=== PATIENT | male | born 1975 | race Caucasian/White ===

== ENCOUNTER 2023-12-28 08:02 | Emergency (ER) | payer BC, SELFPAY ==
[2023-12-28 08:04] VITALS: BP 154/94; PULSE 75; RESP 18; TEMP 36; O2SAT 97; BMI 30.2
[2023-12-28 08:23] LABS: Appearance Urine Clear (Clear); Bilirubin Urine Negative (Negative); Blood Urine Negative (Negative); Color Urine Yellow (Yellow); Glucose Urine Negative (Negative); Ketones Urine Negative (Negative); Leukocyte Esterase Urine Negative (Negative); Nitrite Urine Negative (Negative); Protein Urine Negative (Negative); Urobilinogen Urine 0.2 (0.2-1.0); pH Urine 6.5 (5.0-8.5)
--- NOTE | 2023-12-28 08:31 | CT_ITS ---
Patient: ABBY TY Facility:?[facility] R[facility] Patient ID:?[id number] Site Patient ID:?[id number]. Site :?[id number] Study:?CT-Abdomen/Pelvis W/O-12/28/2023 9:03:47 AM Ordering Physician:DARREN Final Report: INDICATION: LEFT LOWER QUADRANT PAIN , FLANK PAIN TECHNIQUE: CT abdomen and pelvis without contrast COMPARISON: None. FINDINGS: Kidney/ureters: Kidneys are normal in caliber. No kidney or ureteral stones and no hydronephrosis. No sign of perinephric inflammation. Ureters are normal in caliber. No bladder wall thickening. Liver/gallbladder/bile ducts: The liver is normal in size, shape and attenuation. Gallbladder is normal without visualized stones or inflammation. No biliary dilatation. Spleen/pancreas/adrenal glands: The spleen, adrenal glands and pancreas are within normal limits. GI tract: No evidence of bowel obstruction or inflammation. Mild stool burden. Surgically absent appendix. Abdominal wall/omentum/peritoneum: No free air or significant free fluid. No mass or inflammation. Lymph nodes: No lymphadenopathy. Pelvis: Unremarkable pelvis. Probable vasectomy clips Lower chest: Unremarkable. Bones: Mild intervertebral disc space narrowing at L5-S1. IMPRESSION: No evidence of acute intra-abdominal/pelvic process on this unenhanced CT. Suspect small left fat containing inguinal hernia. Please note that all CT scans at this facility use dose modulation, iterative reconstruction, and/or weight-based dosing when appropriate to reduce radiation dose to as low as reasonably achievable. Dictated by Adan Donahue MD @ 12/28/2023 9:51:13 AM Signed by:?Adan Donahue MD @12/28/2023 9:51:13 AM (Electronic Signature)
--- NOTE | 2023-12-28 08:33 | ED_ITS ---
HPI - General Adult General Date Seen: 12/28/23 Chief complaint: Abdominal Pain Stated complaint: Lower L abdominal/back pain Time Seen by Provider: 12/28/23 08:08 Source: patient, RN notes reviewed and old records reviewed Mode of arrival: ambulatory Limitations: no limitations History of Present Illness HPI narrative: Patient is a 48-year-old male generally healthy with the exception of a history of atrial fibrillation who comes in for evaluation of left lower quadrant and left flank pain. He notes that 2 nights ago he was awakened in the middle the night with pain in his left lower quadrant which he says was sharp in fairly severe to the point that he felt nauseated. He got up to urinate, felt that it was somewhat difficult ago. Yesterday however symptoms were somewhat improved and he thought it was just getting better. He has persistent symptoms today, now it seems to radiate to the left flank area as well. He has not had urinary symptoms aside from feeling that his urine is somewhat malodorous 1st thing in the morning. He has not had fevers or chills. He has not had return of nausea and has had no vomiting, diarrhea, constipation, black or bloody stools. Pain d oes worsen when he leans forward or when he lifts his left leg at the hip, but he says it feels different than muscular back pain. He had a colonoscopy a couple of years ago, reports no significant findings. He has a history of hernia repair as a child, appendectomy, varicocele repair. No other abdominal surgeries. He is not anticoagulated as he has not had problems with AFib recently. He does not smoke or drink. He has not taken anything for pain. Related Data Home Medications Medication Instructions Recorded Confirmed amlodipine 10 mg tablet 10 mg PO DAILY 12/28/23 12/28/23 lisinopril 20 mg tablet 20 mg PO DAILY 12/28/23 12/28/23 sotalol 80 mg tablet 80 mg PO DAILY 12/28/23 12/28/23 Allergies Allergy/AdvReac Type Severity Reaction Status Date / Time acetaminophen [From Percocet] Allergy Intermediate racing Verified 12/28/23 08:12 heart oxycodone [From Percocet] Allergy Intermediate racing Verified 12/28/23 08:12 heart Sulfa (Sulfonamide Allergy Mild A fib Verified 12/28/23 08:12 Antibiotics) Review of Systems Status of ROS: Reports: 10 or more systems reviewed and unremarkable except as noted in History and below [facility] Medical History Hypertension ?I10 - Essential (primary) hypertension (ICD-10) Social History Smoking Status: Never smoker Do you use any of these nicotine containing products: None How often do you have a drink containing alcohol: never AUDIT-C Alcohol total score: 0 Non-prescribed substance use: denies use Exam Narrative: Exam Narrative: Vital signs as noted above. In general, an alert, well-appearing patient. Head: Normocephalic, atraumatic. Eyes: Pupils are equal reactive. Extraocular movements are full. Conjunctivae are normal. ENT: Mucous membranes are moist. Throat is normal. Neck: Supple without lymphadenopathy. Heart: Regular rate and rhythm. No murmur or rub. Lungs: Clear bilaterally. No increased work of breathing, crackles or wheezes. Abdomen: Soft and nontender. No CVA tenderness. Extremities: Well perfused. No edema. No calf tenderness. Pulses intact. Neurologic: Patient is alert and oriented to person and place. Speech is fluent. Face is symmetric. Moves all extremities equally. Affect: Normal. Skin: Warm and dry. Well perfused. Const: Vital Signs, click to edit/add: Vital Signs - 24 hr 12/28/23 08:04 Temperature 96.8 F L Pulse Rate [Left P ulse Oximeter] 75 Respiratory Rate 18 Blood Pressure [Le ft Upper Arm] 154/94 H Pulse Oximetry 97 Oxygen Delivery Me thod Room Air Documenting provider has reviewed patient's vital signs: yes Course Course ED Course: Patient presents with some left lower quadrant pain without significant te nderness, no GI symptoms or fever, no known history of kidney stones. Diagnostic considerations would include kidney stone, UTI or pyelonephritis, diverticulitis, hernia, musculoskeletal injury among others. I think it is reasonable to do a CT scan without contrast to look for a kidney stone as symptoms certainly sound suggestive. Urinalysis is pending. He declines need for anything for pain at this time. Both urinalysis and CT scan were negative. UA shows 0-2 red cells and 0-2 white cells, CT scan by my review did not show hydronephrosis, renal stone, perinephric stranding, or other inflammatory changes suggestive of diverticulitis. I do not see significant diverticulosis. Final radiology read as follows:FINDINGS: Kidney/ureters: Kidneys are normal in caliber. No kidney or ureteral stones and no hydronephrosis. No sign of perinephric inflammation. Ureters are normal in caliber. No bladder wall thickening. Liver/gallbladder/bile ducts: The liver is normal in size, shape and at tenuation. Gallbladder is normal without visualized stones or inflammation. No biliary dilatation. Spleen/pancreas/adrenal glands: The spleen, adrenal glands and pancreas are within normal limits. GI tract: No evidence of bowel obstruction or inflammation. Mild stool burden. Surgically absent appendix. Abdominal wall/omentum/peritoneum: No free air or significant free fluid. No mass or inflammation. Lymph nodes: No lymphadenopathy. Pelvis: Unremarkable pelvis. Probable vasectomy clips Lower chest: Unremarkable. Bones: Mild intervertebral disc space narrowing at L5-S1. IMPRESSION: No evidence of acute intra-abdominal/pelvic process on this unenhanced CT. Suspect small left fat containing inguinal hernia. Discussed all this with him. At this time given benign abdominal exam and n ormal CT, I think it is most reasonable to treat this conservatively, use ibuprofen for the next several days, and have him follow up if symptoms are persistent. Discussed that if he is worsening, has severe uncontrolled pain, fever, vomiting, bloody stools or other significant changes return any time to the emergency department. He is comfortable with that plan. Vital Signs Vital signs: Initial Vital Signs Temperature 96.8 F L 12/28/23 08:04 Temperature Source Temporal Artery Scan 12/28/23 08:04 Pulse Rate 75 12/28/23 08:04 Respiratory Rate 18 12/28/23 08:04 Blood Pressure 154/94 H 12/28/23 08:04 Blood Pressure Mean 114 H 12/28/23 08:04 Blood Pressure Position Sitting 12/28/23 08:04 Pulse Oximetry 97 12/28/23 08:04 Oxygen Delivery Method Room Air 12/28/23 08:04 Vital Signs Temperature 96.8 F L 12/28/23 08:04 Pulse Rate 75 12/28/23 08:04 Respiratory Rate 18 12/28/23 08:04 Blood Pressure 154/94 H 12/28/23 08:04 Pulse Oximetry 97 03/17/24 08:04 Oxygen Delivery Method Room Air 12/28/23 08:04 Temperature 96.8 F L 12/28/23 08:04 Pulse Rate 75 12/28/23 08:04 Respiratory Rate 18 12/28/23 08:04 Blood Pressure 154/94 H 12/28/23 08:04 Pulse Oximetry 97 12/28/23 08:04 Oxygen Delivery Method Room Air 12/28/23 08:04 Medical Decision Making Lab Data Labs: Lab Results 12/28/23 Range/Units 08:10 Urine Color Yellow (Yellow) Urine Appearance Clear (Clear) Urine pH 6.5 (5.0-8.5) Ur Specific [place] 1.020 (1.000-1.030) Urine Protein Negative (Negative) Urine Glucose (UA) Negative (Negative) Urine Ketones Negative (Negative) Urine Blood Negative (Negative) Urine Nitrite Negative (Negative) Urine Bilirubin Negative (Negative) Urine Urobilinogen 0.2 (0.2-1.0) Ur Leukocyte Esterase Negative (Negative) Urine RBC 0-2 (0-2) Urine WBC 0-2 (0-5) Ur Squamous Epith Cells None (None-Few) Urine Bacteria None (None) Discharge Plan Discharge Clinical Impression: Left lumbar pain Patient Disposition: Home, Self-Care Condition: Stable Instructions: Acute Low Back Pain (ED) Additional Instructions: Ibuprofen 400 mg 3 times daily with food for the next several days. For persistent pain, see your clinic doctor this week. For worsening or severe symptoms such as severe uncontrolled pain, fever, vomiting, bloody stools, return to the emergency department for re-evaluation. CT scan today is normal with the exception of a small hernia in the groin, which I think is incidental and not the cause of your symptoms. Prescriptions: No Action sotalol 80 mg tablet 80 mg PO DAILY lisinopril 20 mg tablet 20 mg PO DAILY amlodipine 10 mg tablet 10 mg PO DAILY Follow Up/Referrals: Grayson Blackwell MD [Primary Care Provider] - Stand Alone Forms: MyHealth Info Instructions
[2023-12-28 08:45] LABS: RBC Urine 0-2 (0-2); WBC Urine 0-2 (0-5)
== END 2023-12-28 10:08 | disposition home or self-care (01) ==
PROVIDERS: Emergency Provider Emergency Medicine; PCP Family Medicine
DX: R10.32 Left lower quadrant pain (principal); M54.50 Low back pain, unspecified
CPT/HCPCS: 74176; 81001; 99284

== ENCOUNTER 2024-12-16 05:51 | Emergency (ER) | payer BC, SELFPAY ==
--- OUTSIDE RECORDS SUMMARY | 2024-12-16 05:54 | XMS_ITS | Data Portability ---
Author Organization [place] - [facility] Address [address] [place] [address] Care Team Providers Care Circular Knife Cutter Machine Name Role Phone CHERI BRANCH Primary Care Provider Assessment No assessment recorded. Plan of Treatment Reminders Order Date Submit Date Provider Last Modified By Organization Details Last Modified Time Details Appointments None record ed. Lab None record ed. Referral None record ed. Procedures None record ed. Surgeries None record ed. Imaging None record ed. Medication Orders None record ed. Patient TargetsNo targets recorded. Patient Instructions Encounter Date Encounter Id Patient Instructions Last Modified By Organization Details Last Modified Time 01/22/2023 [id number] 47 y/o male presents for an evaluation of peyronies disease and nocturia Peyronie's disease - Educated patient on peyronies disease and treatment options available such as surveillance, oral medications (pentoxifylline), xiaflex, RestoreX penile traction device and surgery. Patient is not bothered enough by the symptoms to pursue treatment at this time. Hand out on treatment options provided. He will discuss options further with and notify office if interested in treatment. Nocturia - Discussed lifestyle changes vs. trial of medications. Educated on stopping all fluid consumption 3 hours prior to bed, limit bladder irritants (carbonation, alcohol, caffeine) after noon, and voiding prior to bed. Educated on alpha blockers vs. anticholinergics, but patient has minimal to no day time voiding concerns. He would prefer to start with lifestyle changes prior to pursuit of medications. Not available 01/22/2023 17:05:57 Reason for Referral None Reported. Results Created Date Observation Date Name Description Value Unit Range Abnormal Flag Note LastModifiedBy Organization Detail LastModifiedTime 01/14/20 23 11/27/2020 US, scrot um No observ ation record ed. Not Available 2022 13:13:12 Result Notes None recorded. Procedures Surgical History Date Name Laterality Status Provider Name and Address Organization Details Recorded Time 02/05/20 18 Colonoscopy completed JOSE AGUILAR, PAC [address], [place], [address], [place] [facility] 01/22/2023 14:56:06 06/30/20 13 Ligation of sperm duct completed Not Available [facility] 03/23/2020 15:00:33 09/06/20 05 Revise spermatic cord veins completed Not Available [facility] 03/23/2020 15:00:33 08/27/20 05 Revise spermatic cord veins completed Not Available [facility] 03/23/2020 15:00:33 08/27/20 03 Appendectomy add-on completed Not Available [facility] 03/23/2020 15:00:33 Imaging Results Imaging Date Name Status LastModified by Organiz ation Details LastModified Time 11/27/2020 US, scrotum completed Information n ot available 01/13/2023 13:13:12 Procedure Notes None recorded. Medical Equipment None Reported. Allergies Allergen ID Allergen Name Allergen Category Reaction Reaction Severity Criticality Documentation Date Start Date Code Code System Note Provider Name and Address Organization Details Recorded Time 507180 Substance with sulfonami de structure and antibacte rial mechanism of action (substanc e) medicatio n other Not available Not available 01/21/2023 96605 [id number] SNOMED a fib Not Available Not Available Not Available Medications Name Sig Start Date Stop Date Status Note LastModified by Organization Details LastModified Time sotalol 80 mg tablet 80mg 1/day active Not Available Not Available Not Available lisinopril 20 mg tablet active Not Available Not Available Not Available amlodipine 10 mg tablet active Not Available Not Available Not Available lisinopril 10 mg tablet 10mg 1/day active Not Available Not Availa ble Not Available amlodipine 10 mg-valsartan 160 mg tablet lisinopril 1/day active Not Available Not Available No t Available Vitals Date Recorded Body weight Body mass index (BMI) Body height Provider Name and Address Organization Details Last Updated DateTime 01/22/2023 565827.8718 95208 g 30.2 kg/m2 187.96 cm Not Available Health Note 01/22/2023 14:49:05 Social History Question Answer Notes LastModified by Organizat ion Details LastModified Time Tobacco Smoking Status Never Smoker Not Available Health Note 01/21/2023 12:01:00 What Is Your Level Of Alcohol Consumption? Occasional [email or web address] Information not available 01/21/2023 What Is Your Level Of Caffeine Consumption? Moderate [email or web address] Information not available 01/21/2023 How Much Tobacco Do You Chew? None [email or web address] Information not available 01/21/2023 Do You Or Have You Ever Used E-cigarettes Or Vape? Never Used Electronic Cigarettes [email or web address] Information not available 01/21/2023 Race White sbhusal1.63 Information n ot available 03/23/2020 Ethnicity Not /Latin o Information not available 01/22/2023 Preferred Language Maltese Information not available 01/22/2023 Marital Status [email or web address] Informatio n not available 01/21/2023 What Was The Date Of Your Most Recent Tobacco Screening? 01/22/2023 [email or web address] Information not available 01/21/2023 What Is Your Relationship Status? [email or web address] Information not available 01/21/2023 Are You Sexually Active? No [email or web address] Information not available 01/21/2023 Do You Or Have You Ever Used Smokeless Tobacco? Never Used Smokeless Tobacco [email or web address] Information not available 01/21/2023 Do You Use Any Illicit Or Recreational Drugs? No [email or web address] Information not available 01/21/2023 Has Tobacco Cessation Counseling Been Provided? No Information not available 01/22/2023 Do You Or Have You Ever Used Any Other Forms Of Tobacco Or Nicotine? No Information not available 01/22/2023 Sex: Unknown Functional Status None recorded. Mental Status None recorded. Family History Relationship Description Onset Age of this Age Resolved Age Notes LastModified by Organization Details LastModified Time Paternal Grandmother Family history of breast cancer [email or web address] Not available 2022 12:00:57 Paternal Grandmother Family history of diabetes mellitus [email or web address] Not available 2022 12:00:57 Father Family history of cardiac disorder [email or web address] Not available 2022 12:00:57 Mother Family history of malignant neoplasm [email or web address] Not available 2022 12:00:57 Notes:Hypertension:Father Cancer, brain:Mother Medical History Condition Response Sexually Transmitted Infection N Diabetes N Bleeding Disorder N High Blood Pressure Y Kidney Stones N Cancer N Lung Disease N Depression N High Cholesterol N GERD/Acid Reflux N Heart Disease N Immunizations Vaccine Type Date Status Note Provider Nam e and Address Organization Details Recorded Time SARS-COV-2 (COVID-19) vaccine, UNSPECIFIED 0 completed Not Available Health Note 01/21/2023 12:01:11 Past Encounters Encounter ID Performer Location Encounter Start Date Encounter Closed Date Diagnosis/Indication Diagnosis SNOMED-CT Code Diagnosis ICD10 Code Diagnosis Note [id number] BETY DAVE [facility] [address] [address] 01/22/2023 14:44:53 01/22/2023 17:08:08 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 Nocturia 830774914 R35.1 Health Concerns Section Related Observation LastModified by Organization Detai ls LastModified Time None Recorded Concern Status LastModified by Organization Details LastModified Time None Recorded Advance Directives Directive None Recorded Payers Encounter Date Sequence Insurance Name Policy Number Policy Blevins Covered Member ID Blevins Member ID Guarantor Name 01/22/2023 1 [place] - MEDICARE COST [id number] Sami Ortiz [id number] Sami Ortiz Notes Date Note Type Note Provider Name and Address Organization Details Recorded Time 3 text/html NocturiaReported bypatient.Notes:Patient presents for an evaluation of nocturia. He tends to void 3-4x a night on average. His nocturia has been present for the past 2+ years. No preceding event he can associate to the development of nocturia. Denies dysuria, hematuria, abdominal pain, and penile discharge. He has good urine stream with majority voids. Minimal to no urinary frequency, urgency or hesitancy throughout the day. He fields not been treated for any voiding dysfunction previously.Peyronie's DiseaseReported bypatient.Notes:Patient presents for an evaluation of leftward curvature. The curvature has been present for the past 3 months. Prior to curvature development, he did feel a pop when stretching in the middle of the night during an erection. His curvature has remained stable since initial onset. Penile pain appreciated with erections. No penile shortening or narrowing noted with erections.He is able to achieve an ehs of 3-4 with adequate maintenance.He has not attempted sexual activity with since curvature so he is unsure if partner is bothered by curvature. His greatest concern is presence of penile pain with erections. Peyronie's Disease Bother Domain QuestionnaireQuestion 1: 2-3Question 2: 2Question 3: 0Question 4: 3Total: 7-8 (0-16 severity) JOSE AGUILAR, [facility] [address], [place], [address], [facility] 01/22/2023 17:06:15
--- OUTSIDE RECORDS SUMMARY | 2024-12-16 05:54 | XMS_ITS | Continuity of Care Document ---
Author Organization [facility] Address [address] [place] [address] [address] [place] [address] Phone Care Team Providers Care Transportation Program Director Name Role Phone Rory DAWKINS, Martin Unavailable Unavailable Procedures Procedure Date Office consultation, moderate 9 Advance Directives Directive Yes / No Effective Date File Name No Information Encounters Encounter Description Practice Location Reason(s) For Visit Diagnoses Date Provider Providers Copied on Encounter Office consultation, moderate Z [facility], [address] [place] [address], [address], [place] tel:[phone] 0905 [facility] No Information Rory Salazar. [facility], [address], [place], [place], [id number] , [place]. tel:[phone] Family History Family Member Type Diagnosis Age At Onset No Information Payers Payer name Insurance type Covered libertarian ID Authoriza tisony(s) [facility] [id number] Social History Type Description Quantity Date Captured Comments Sex Male Smoking Status No Information Chief Complaint And Reason For Visit No Information Reason For Referral Reason For Referral No Information History Of Present Illness Encounter Date Complaint History Of Prese nt Illness No Information Functional Status Date Functional Assessmen t No Information Instructions Date Instruction Additional Infor mation No Information Assessments Type Assessment Date No Information Patient Care Teams Name Effective Dates (start - stop) Status Members No Information
--- OUTSIDE RECORDS SUMMARY | 2024-12-16 05:54 | XMS_ITS | Clinical Summary ---
Author Organization [facility] Address [address] [place] [id number] Care Team Providers Care Hospice Care Sales Consultant Name Role Phone Yasmani Burger MD Primary Care Provider [phone]- [phone] Allergies Active Allergy Reactions Criticality Noted Date Comments Oxycodone-Acetaminophen 09/20/2009 Sulfa (Sulfonamide Antibiotics) Arrhythmia 09/12 Medications aspirin (ECOTRIN) 81 mg enteric coated tablet Take 1 tablet by mouth once daily with a meal. 0 09/24/2018 Active sotaloL (BETAPACE) 80 mg tabletIndications :PAF (paroxysmal atrial fibrillation) (HC) TAKE ONE-HALF TABLET (40 MG) BY MOUTH EVERY 12 HOURS 30 Tablet 10/15/2024 Active lisinopriL (PRINIVIL; ZESTRIL) 20 mg tabletIndications :Essential hypertension TAKE ONE TABLET BY MOUTH EVERY DAY 30 Tablet 11/15/2024 Active amLODIPine (NORVASC) 10 mg tabletIndications :Essential hypertension TAKE ONE TABLET BY MOUTH EVERY DAY 30 Tablet 11/15/2024 Active Active Problems Problem Noted Date Diagnosed Date Peyronie's disease 04/23/2023 Tear of right acetabular labrum 11/21/2022 Chronic right SI joint pain 11/21/2022 Hip tightness 11/21/2022 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 Hypertension 06/25/2019 Routine adult health maintenance 10/01/2018 Overview (10/01/2018): Colonoscopy 09/2018 normal, repeat in 10 years Paroxysmal atrial fibrillation 06/25/2018 Overview (01/07/2022): He has two lifetime episodes. One in 2016 and one in 2019. The first episode he spontaneously converted. The second episode they did a Cardioversion. Intervertebral cervical disc disorder with myelopathy, cervical region 09/20/2009 Cervical cord compression with myelopathy 2008 Overview (11/27/2020): In his early 20s he fell on the ice while ice fishing and this resulted in Herniation of C4-5 and C5-6. He occasionally gets numbness in his right thumb. Encounters Date Type Department Care Team Description 12/16/2024 Refill [facility] [address] [place] [address] Yasmani Burger MD Refill Request (Amlodipine, Lisinopril) 12/06/2024 Telephone [facility] [address] [place] [address] Yasmani Burger MD Medication Management (lisinopriL (PRINIVIL; ZESTRIL) 20 mg tablet/amLODIPine (NORVASC) 10 mg tablet /) 11/15/2024 Refill [facility] [address] [place] [address] Yasmani Burger MD Refill Request (Lisinopril, Amlodipine) 10/11/2024 Refill [facility] [address] [place] [address] Yasmani Burger MD Refill Request (Lisinopril, Sotalol, Amlodipine) from Last 3 Months Immunizations Name Administration Dates Next Due COVID-19 vaccine (Moderna Rodger harsh 50mcg/0.25mL) PF MDCarlota 10/07/2021 COVID-19 vaccine (Pfizer-BioNTNovede Entertainment 30mcg/0.3mL) P F MDCarlota 01/18/2021,12/28/2020 Influenza A (H1N1), Inactivated (Age >=3 Years) 08/21/2009 Influenza, IIV3 (Age >=3 years) 08/16/2008,07/31 Influenza, IIV4 07/13/2009 Td, Preservative Free (age >= 7 Years) 4 Tdap 12/20/2014 Family History Medical History Relation Name Comments Good Health Brother Heart failure Father of this a t 72; smoker Brain cancer Mother of brain t umor at 35 Lung cancer Sister at 55, smo ker Relation Name Status Comments Brother Father (Age 72) Mother (Age 35) Sister (Age 55) Social History Tobacco Use Types Packs/Day Years Used Date Smoking Tobacco: Never Smokeless Tobacco: Never Tobacco Cessation:Counseling Given: Not Answered Alcohol Use Standard Drinks/Week Comments Yes 0 (1 standard drink = 0.6 oz pur e alcohol) maybe once per month or less PHQ-2 Answer Date Recorded PHQ-2 TOTAL SCORE 0 04/23/2023 Social Connections Answer Date Recorded Do you often feel lonely or isolated from those around you? 0 04/01/2024 Alcohol Use Answer Date Recorded How often do you have a drink containing alcohol ? 1 04/23/2023 How many drinks containing a lcohol do you have on a typical day when you are drinking? 0 04/23/2023 How often do you have five or more drinks on one occasion? 0 04/23/2023 Financial Resource Strain Answer Date R ecorded Difficulty of Paying Living Expenses 3 04/01/2024 Difficulty of Paying Living Expenses Not on file 04/01/2024 Food Insecurity Answer Date Recorded Do you worry your food will run out before you are able to buy more? 1 04/01/2024 Transportation Needs Answer Date Record ed Does lack of transportation keep you from medica l appointments? 1 04/01/2024 Does lack of transportation keep you from work, meetings or getting things that you need? 1 04/01/2024 Housing Stability Answer Date Recorded What is your housing situation today? 1 04/01/2024 Utilities Answer Date Recorded Do you have trouble paying f or utilities (for example, heat, electricity, water, phone)? 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 on file Obstetrics History Last Filed Vital Signs Vital Sign Reading Time Taken Comments Blood Pressure 148/91 04/01/2024 2:59 PM CDT Pulse 82 04/01/2024 2:59 PM CDT Temperature 36.3 C (97.3 F) 12/14/2021 10:37 AM MACHINE II ENGRAVER Respiratory Rate 18 12/26/2020 2:18 PM CDT Oxygen Saturation 95% 04/01/2024 2:59 PM CDT Inhaled Oxygen Concentration - - Weight 111.7 kg (246 lb 3.2 oz) 024 10:01 AM CDT Height 186.3 cm (6' 1.35) 04/23/2023 1 2:59 PM CDT Body Mass Index 32.18 04/23/2023 12:59 PM CDT Plan of Treatment Upcoming Encounters Date Type Department Care Team (Late st Contact Info) Description 12/22/2024 3:40 PM CDT Office Visit [facility] [address] [place] [address] Yasmani Burger MD [address] [place] [address] Health Maintenance Due Date Last Done Comments Pneumococcal series for age 6-49 (1 of 2 - PCV) 1994 BMI (ht and wt on same day) for age 18+ 04/23/2024 04/23/2023, 01/07/2022, 04/17/2021, Additional history exists Depression screening for age 12+ 04/23/2024 04/23/2023, 12/14/2021, 11/28/2020, Additional history exists COVID-19 vaccine series ( season) 2024 10/07/2021, 01/18/2021, 12/28/2020 Influenza for age 9-49 06/13/2024 9, 07/13/2009, 08/16/2008, Additional history exists Tetanus booster 12/20/2024 12/20/2014, 06/13/2004 Lipids for age 45-75 04/23/2028 04/23/2023, 12/14/2021, 11/24/2020 Colonoscopy through age 75 09/30/202809/30, 09/30/2018, 09/30/2018 Tdap Completed 12/20/2014 HIV for age 15-65 Completed 04/23/2023 Hepatitis C screening for ag e 18-79 Completed 04/23/2023 Procedures Procedure Name Priority Date/Time Associated Diagnosis Comments LC HIV-1/O/2, 4TH GENERATION Routine 04/23/2023 1:36 PM CDT Screening for HIV (human immunodeficiency virus) LC HCV ANTIBODY RFX TO QUANT PCR Routine 04/23/2023 1:36 PM CDT Need for hepatitis C screening test LIPID PANEL W REFLEX MEASURED LDL Routine 04/23/2023 1:36 PM CDT Essential hypertension COLONOSCOPY DIAGNOSTIC Routine 09/30/2018 12:52 PM MACHINE II ENGRAVER Diarrhea, unspecified type from Last 3 Months or Most Recently Relevant to Health Maintenance Results * LC HCV ANTIBODY RFX TO QUANT PCR (04/23/2023 1:36 PM CDT) HCV Ab Non Reactive Non Reactive 04/25/2023 10:06 PM CDT [facility] Blood BLOOD SPECIMEN / Unknown Venipuncture / Unknown 04/23/2023 1:36 PM CDT 04/23/2023 1:36 PM CDT Narrative [facility]) - 04/25/2023 10:06 PM CDT Performed at: [address] [place] [address] [address] [place], [place] [id number] Emergency Room Technician: Hawk Plaza MD, Phone: [phone] us Yasmani Burger MD LABORATORY Final Resu lt [facility] (CET) [address] [place] [address], * LC HIV-1/O/2, 4TH GENERATION (04/23/2023 1:36 PM CDT) Pathologist [facility] HIV Scr 4th Gen Non Reactive Non Reactive 04/25/2023 12:08 PM CDT [facility] (CET) Comment: HIV Negative HIV-1/HIV-2 antibodies and HIV-1 p24 antigen were NOT detected. There is no laboratory evidence of HIV infection. Blood BLOOD SPECIMEN / Unknown Venipuncture / Unknown 04/23/2023 1:36 PM CDT 04/23/2023 1:36 PM CDT Narrative [facility] (CET) - 04/25/2023 12:08 PM CDT Performed at: [address] [place] [id number] Emergency Room Technician: Hawk Plaza MD, Phone: [phone] us Yasmani Burger MD LABORATORY Final Resu lt [facility] (CET) [address] [place] [address], * (ABNORMAL) LIPID PANEL W REFLEX MEASURED LDL (04/23/2023 1:36 PM CDT) [facility] CHOLESTEROL,TOTAL 208(H) 100 - 199 mg/dL 04/24/2023 12:54 AM CDT [facility] TRAL LABORATORY Comment: Cholesterol, Total Reference Ranges Desirable <200 mg/dL Borderline 200-239 mg/dL High >=240 mg/dL TRIGLYCERIDES 236(H) <150 mg/dL 04/24/2023 12:54 AM CDT [facility] HDL CHOLESTEROL 44 >40 mg/dL 12:54 AM CDT [facility] TRAL LABORATORY NON-HDL CHOLESTEROL 164(H) <145 mg/dl 04/24/2023 12:54 AM CDT [facility] TRAL LABORATORY CHOL/HDL RATIO 4.73(H) <4.50 04/24/2023 12:54 AM CDT [facility] TRAL LABORATORY LDL CHOLESTEROL 117 <=130 mg/dL 04/24/2023 12:54 AM CDT [facility] TRAL LABORATORY VLDL CHOLESTEROL 47(H) <=30 mg/dL 04/24/2023 12:54 AM CDT [facility] TRAL LABORATORY PROVIDER ORDERED STATUS RANDOM 04/24/2023 12:54 AM CDT [facility] TRAL LABORATORY Blood BLOOD SPECIMEN / Unknown Venipuncture / Unknown 04/23/2023 1:36 PM CDT 04/23/2023 1:36 PM CDT us Yasmani Burger MD CHEMISTRY Final Resu lt [facility] LABORATORY [address] [place] [address], * COLONOSCOPY DIAGNOSTIC (09/30/2018 12:52 PM MACHINE II ENGRAVER) us Jass Murphy MD GI PROCEDURE ORD Final Re sult from Last 3 Months or Most Recently Relevant to Health Maintenance Insurance [facility] Care Teams Hospice Care Sales Consultant Relationship Specialty Start Date End Date [place] [address] PCP - General Family Practice 11/21/22
[2024-12-16 06:04] VITALS: BP 138/86; PULSE 60; RESP 16; TEMP 36.6; O2SAT 98; BMI 31.5
--- NOTE | 2024-12-16 06:32 | ED_ITS ---
HPI - Arrhythmia/Palpitations General Date Seen: 12/16/24 Chief Complaint: Arrhythmia/Palpitations Stated Complaint: went into a-fib this morning Time Seen by Provider: 12/16/24 06:08 Source: patient Mode of arrival: ambulatory Limitations: no limitations History of Present Illness HPI narrative: Patient is a 49-year-old male with long history of intermittent atrial fibrillation of who believes that he went back into atrial fibrillation this morning after waking from sleep. In the past when this happens he gets an anxiety feeling and he did experience that this morning. No feelings of chest pain, shortness of breath, tachycardia. He has never had a cardioversion or ablation. He last saw Cardiology February of 2022 and was instructed to follow-up in a year. He no showed that appointment and has not been back since. He continues to take amlodipine and lisinopril for hypertension and sotalol 40 mg b.i.d. for rate control. He is not anticoagulated and does not take an aspirin. Related Data Home Medications ?Medication ?Instructions ?Recorded ?Confirmed amlodipine 10 mg tablet 10 mg PO DAILY 12/28/23 12/28/23 lisinopril 20 mg tablet 20 mg PO DAILY 12/28/23 12/28/23 sotalol 80 mg tablet 80 mg PO DAILY 12/28/23 12/28/23 Previous Rx's ?Medication ?Instructions ?Recorded apixaban 5 mg tablet (Eliquis) 5 mg PO BID #60 tabs 12/16/24 Allergies Allergy/AdvReac Type Severity Reaction Status Date / Time acetaminophen (From Percocet) Allergy Intermediate racing Verified 12/16/24 06:07 heart oxycodone (From Percocet) Allergy Intermediate racing Verified 12/16/24 06:07 heart Sulfa (Sulfonamide Allergy Mild A fib Verified 12/16/24 06:07 Antibiotics) Review of Systems Narrative: Review of systems is outlined above otherwise noted to be negative. He has not seen his primary and well over a year. He has not had labs in almost two years. 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 HEENT: Conjunctiva clear. Neck is supple without adenopathy, thyromegaly, carotid bruit. Lungs: Clear to auscultation in all dominguez. No wheezes, rales, rhonchi. Heart: Irregularly irregular without murmur. His heart rate is only in the 60s. Abdomen: Soft and nontender. No guarding, rigidity, rebound. Bowel sounds are normal. No palpable masses. Extremities: No cyanosis or edema. Good distal pulses. Skin: No abnormalities noted of the exposed skin. Neurologic: Awake, alert, fully oriented. Neurologic exam is nonfocal. Const: Vital Signs, click to edit/add: Vital Signs - 24 hr 12/16/24 06:04 Temperature 97.9 F Pulse Rate [Right Pulse Oximeter] 60 Respiratory Rate 16 Blood Pressure [Le ft Upper Arm] 138/86 Pulse Oximetry 98 Oxygen Delivery Me thod Room Air Course Course ED Course: Patient seen and examined. He is stable. Labs are drawn. EKG shows atrial fibrillation with a rate of 63. No acute ST or T-wave changes. Reevaluation(s) Reevaluation #1: CBC, BMP, TSH, troponin are all normal. He remains in atrial fibrillation and is rate controlled between 55 and 70. His blood pressure is normal. He has no chest pains or shortness of breath. He does have an upcoming trip to the [facility] [place] and he is scheduled to see his PCP next week. He has a CHADsVasc score of 1 for hypertension. There is no indication for transfer or cardioversion at this time. I will go ahead and start him on Eliquis 5 mg b.i.d. so that he is properly anticoagulated if intervention is needed. He will need an updated echo and cardiology follow-up and I am certain that Dr. Burger can help to facilitate that. Vital Signs Vital signs: Initial Vital Signs Temperature 97.9 F 12/16/24 06:04 Temperature Source Temporal Artery Scan 12/16/24 06:04 Pulse Rate 60 12/16/24 06:04 Pulse Rhythm Irregular 12/16/24 06:04 Pulse Strength 3+ Normal 12/16/24 06:04 Respiratory Rate 16 12/16/24 06:04 Blood Pressure 138/86 12/16/24 06:04 Blood Pressure Mean 103 12/16/24 06:04 Blood Pressure Position Sitting 12/16/24 06:04 Pulse Oximetry 98 12/16/24 06:04 Oxygen Delivery Method Room Air 12/16/24 06:04 Vital Signs Temperature 97.9 F 12/16/24 06:04 Pulse Rate 60 12/16/24 06:04 Respiratory Rate 16 12/16/24 06:04 Blood Pressure 138/86 12/16/24 06:04 Pulse Oximetry 98 12/16/24 06:04 Oxygen Delivery Method Room Air 12/16/24 06:04 Temperature 97.9 F 12/16/24 06:04 Pulse Rate 60 12/16/24 06:04 Respiratory Rate 16 12/16/24 06:04 Blood Pressure 138/86 12/16/24 06:04 Pulse Oximetry 98 12/16/24 06:04 Oxygen Delivery Method Room Air 12/16/24 06:04 MDM - Arrhythmia/Palpitations Lab Data Labs: Lab Results 12/16/24 Range/Units 06:20 WBC 6.58 (4.50-11.00) K/uL RBC 4.87 (4.30-5.90) m/uL Hgb 14.8 (13.5-17.5) gm/dL Hct 44.2 (37.0-53.0) % MCV 91 (80-100) fL MCH 30 (26-34) pg MCHC 34 (32-36) gm/dL RDW Coeff of Cynthia 12.2 (11.5-15.5) % Plt Count 253 (140-440) K/uL Neut % (Auto) 56.8 (42.0-72.0) % Lymph % (Auto) 27.1 (20-44) % Trego % (Auto) 9.7 (0.0-11.0) % Eos % (Auto) 4.4 (0.0-7.0) % Baso % (Auto) 1.2 (0.0-3.0) % Neut # (Auto) 3.74 (1.7-7.0) K/uL Lymph # (Auto) 1.78 (0.90-2.90) K/uL Trego # (Auto) 0.60 (0.00-0.90) K/UL Eos # (Auto) 0.29 (0.00-0.50) K/uL Baso # (Auto) 0.08 (0.00-0.30) K/uL Abs Immat Gran (auto) 0.05 (0.00-0.30) K/uL Imm/Tot Granulo (auto) 0.8 % Sodium 138 (135-149) mmol/L Potassium 4.1 (3.6-5.1) mmol/L Chloride 101 (96-114) mmol/L Carbon Dioxide 29 (20-32) mmol/L Anion Gap 8 (7-15) mEq/L BUN 16 (5-24) mg/dL Creatinine 0.8 (0.5-1.5) mg/dL Estimated Creat Clear 129.86 Estimated GFR 108 ml/min Glucose 113 (60-115) mg/dL Calcium 9.7 (8.4-10.6) mg/dL Troponin I < 0.01 L (0.01-0.04) ng/mL TSH 2.730 (0.270-4.200) uIU/mL Discharge Plan Discharge Clinical Impression: Atrial fibrillation, Primary hypertension Patient Disposition: Home, Self-Care Condition: Stable Additional Instructions: Continue current medications. Start Eliquis 5 mg b.i.d.. Follow-up with Dr. Burger next week as scheduled. You could contact his office and ask if he can facilitate a visit with Cardiology prior to your vacation. Return emergency department for chest pain, shortness of breath, racing heart. Prescriptions: New Eliquis 5 mg tablet 5 mg PO BID Qty: 60 0RF No Action sotalol 80 mg tablet 80 mg PO DAILY lisinopril 20 mg tablet 20 mg PO DAILY amlodipine 10 mg tablet 10 mg PO DAILY Follow Up/Referrals: Yasmani Burger MD [Primary Care Provider] - Stand Alone Forms: [place] Info Instructions
[2024-12-16 06:35] LABS: Basophils Absolute Auto 0.08 K/uL (0.00-0.30); Basophils Percent Auto 1.2 % (0.0-3.0); Eosinophils Absolute Auto 0.29 K/uL (0.00-0.50); Eosinophils Percent Auto 4.4 % (0.0-7.0); Hematocrit 44.2 % (37.0-53.0); Hemoglobin* 14.8 gm/dL (13.5-17.5); Immature Granulocytes Abs Auto 0.05 K/uL (0.00-0.30); Immature Granulocytes Pct Auto 0.8 %; Lymphocytes Absolute Auto 1.78 K/uL (0.90-2.90); Lymphocytes Percent Auto 27.1 % (20-44); Mean Corpuscular HGB Conc 34 gm/dL (32-36); Mean Corpuscular Hemoglobin 30 pg (26-34); Mean Corpuscular Volume 91 fL (80-100); Monocytes Percent Auto 9.7 % (0.0-11.0); Neutrophils Absolute Auto 3.74 K/uL (1.7-7.0); Neutrophils Percent Auto 56.8 % (42.0-72.0); Platelet Count* 253 K/uL (140-440); RDW Coefficient of Variation % 12.2 % (11.5-15.5); Red Blood Count 4.87 m/uL (4.30-5.90); White Blood Count* 6.58 K/uL (4.50-11.00)
[2024-12-16 06:38] LABS: Slide Review Reflex No
--- OUTSIDE RECORDS SUMMARY | 2024-12-16 06:38 | XMS_ITS | Clinical Summary ---
Author Organization [facility] Address [address] [place] [address] Care Team Providers Care Personnel Coordinator Name Role Phone Yasmani Burger MD Primary Care Provider [phone]- [phone] Allergies Active Allergy Reactions Criticality Noted Date [...] Type Department Care Team Description 12/16/2024 Refill [facility] [address] [place] [address] Yasmani Burger MD Refill Request (Amlodipine, Lisinopril) 12/06/2024 Telephone [facility] [address] [place] [address] Yasmani Burger MD Medication Management (lisinopriL (PRINIVIL; ZESTRIL) 20 mg tablet/amLODIPine (NORVASC) 10 mg tablet /) 11/15/2024 Refill [facility] [address] [place] [address] Yasmani Burger MD Refill Request (Lisinopril, Amlodipine) 10/11/2024 Refill [facility] [address] [place] [address] Yasmani Burger MD Refill Request (Lisinopril, Sotalol, Amlodipine) from Last 3 Months Immunizations Name Administration Dates Next Due COVID-19 vaccine (Moderna Rodger harsh 50mcg/0.25mL) PF MDCarlota 10/07/2021 COVID-19 vaccine (Pfizer-BioNTG5 30mcg/0.3mL) P F MDCarlota 01/18/2021,12/28/2020 Influenza A [...] on file 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 Gender Identity Not on file Sexual Orientation Not on file 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 on file Obstetrics History Last Filed Vital Signs Vital Sign Reading Time Taken Comments Blood Pressure 148/91 04/01/2024 2:59 PM CDT Pulse 82 04/01/2024 2:59 PM CDT Temperature 36.3 C (97.3 F) 12/14/2021 10:37 AM SHADOWGRAPH SCALE OPERATOR Respiratory Rate 18 12/26/2020 2:18 PM CDT [...] Description 12/22/2024 3:40 PM CDT Office Visit [facility] [address] [place] [address] Yasmani Burger MD [address] [place] [address] Health Maintenance Due Date Last Done Comments [...] hypertension COLONOSCOPY DIAGNOSTIC Routine 09/30/2018 12:52 PM SHADOWGRAPH SCALE OPERATOR Diarrhea, unspecified type from Last 3 Months or Most Recently Relevant to Health Maintenance Results * LC HCV ANTIBODY RFX TO QUANT PCR (04/23/2023 1:36 PM CDT) HCV Ab Non Reactive Non Reactive 04/25/2023 10:06 PM CDT [facility] Blood BLOOD SPECIMEN / Unknown Venipuncture / Unknown 04/23/2023 1:36 PM CDT 04/23/2023 1:36 PM CDT Narrative [facility] - 04/25/2023 10:06 PM CDT Performed at: [address] [place] [address] [address] [place], [place] [id number] Electronic Imaging System Operator: Hawk Plaza MD, Phone: [phone] us Yasmani Burger MD LABORATORY Final Resu lt [facility] (CET) [address] [place] [address], * LC HIV-1/O/2, 4TH GENERATION (04/23/2023 1:36 PM CDT) Pathologist [facility] HIV Scr 4th Gen Non Reactive Non Reactive 04/25/2023 12:[address] [facility] (CET) Comment: HIV Negative HIV-1/HIV-2 antibodies and HIV-1 p24 antigen were NOT detected. There is no laboratory evidence of HIV infection. Blood BLOOD SPECIMEN / Unknown Venipuncture / Unknown 04/23/2023 1:36 PM CDT 04/23/2023 1:36 PM CDT Narrative [facility] (CET) - 04/25/2023 12:08 PM CDT Performed at: [address] [place] [id number] Electronic Imaging System Operator: Hawk Plaza MD, Phone: [phone] us Yasmani Burger MD LABORATORY Final Resu lt [facility] (CET) [address] [place] [address], * (ABNORMAL) LIPID PANEL W REFLEX MEASURED LDL (04/23/2023 1:36 PM CDT) [facility] CHOLESTEROL,TOTAL 208(H) 100 - 199 mg/dL 04/24/2023 12:54 AM CDT [facility] TRAL LABORATORY Comment: Cholesterol, Total Reference Ranges Desirable <200 mg/dL Borderline 200-239 mg/dL High >=240 mg/dL TRIGLYCERIDES 236(H) <150 mg/dL 04/24/2023 12:54 AM CDT [facility] HDL CHOLESTEROL 44 >40 mg/dL 12:54 AM CDT [facility] TRAL LABORATORY NON-HDL CHOLESTEROL 164(H) <145 mg/dl 04/24/2023 12:54 AM CDT [facility] TRAL LABORATORY CHOL/HDL RATIO 4.73(H) <4.50 04/24/2023 12:54 AM CDT [facility] TRAL LABORATORY LDL CHOLESTEROL 117 <=130 mg/dL 04/24/2023 12:54 AM CDT [facility] TRAL LABORATORY VLDL CHOLESTEROL 47(H) <=30 mg/dL 04/24/2023 12:54 AM CDT [facility] TRAL LABORATORY PROVIDER ORDERED STATUS RANDOM 04/24/2023 12:54 AM CDT [facility] TRAL LABORATORY Blood BLOOD SPECIMEN / Unknown Venipuncture / Unknown 04/23/2023 1:36 PM CDT 04/23/2023 1:36 PM CDT us Ysamani Burger MD CHEMISTRY Final Resu lt [facility]ORY [address] [place] [address], * COLONOSCOPY DIAGNOSTIC (09/30/2018 12:52 PM SHADOWGRAPH SCALE OPERATOR) us Jass Murphy MD GI PROCEDURE ORD Final Re sult from Last 3 Months or Most Recently Relevant to Health Maintenance Insurance [facility] Care Teams Personnel Coordinator Relationship Specialty Start Date End [place] [address] PCP - General Family Practice 11/21/22
--- OUTSIDE RECORDS SUMMARY | 2024-12-16 06:38 | XMS_ITS | Continuity of Care Document ---
Author Organization Z [facility] Address [address] [place] [address] [address] [place] [address] Phone Care Team Providers Care [employer] Repairer Name Role Phone Rory DAWKINS, Martin Unavailable Unavailable Procedures Procedure Date Office consultation, moderate 9 Advance Directives Directive Yes / No Effective Date File Name No Information Encounters Encounter Description Practice Location Reason(s) For Visit Diagnoses Date Provider Providers Copied on Encounter Office consultation, moderate Z [facility], [address] [place] [address], [id number], [place] tel:[phone] [address] [facility] No Information Rory Salazar. [facility], [address], [place], [place], [id number] , [place]. tel:[phone] Family History Family Member Type Diagnosis Age At Onset No Information Payers Payer name Insurance type Covered alliance party ID Authoriza tisony(s) [facility] [id number] Social History Type Description Quantity Date Captured [...]
[2024-12-16 06:44] LABS: Chloride* 101 mmol/L (96-114); Potassium* 4.1 mmol/L (3.6-5.1); Sodium* 138 mmol/L (135-149)
[2024-12-16 06:47] LABS: Anion Gap 8 mEq/L (7-15); Blood Urea Nitrogen* 16 mg/dL (5-24); Calcium* 9.7 mg/dL (8.4-10.6); Carbon Dioxide* 29 mmol/L (20-32); Creatinine* 0.8 mg/dL (0.5-1.5); Est. Creatinine Clearance* 129.86; Estimated Glomerular Filt Rate 108 ml/min; Glucose* 113 mg/dL (60-115)
[2024-12-16 07:02] LABS: Troponin I* < 0.01 ng/mL (0.01-0.04)
== END 2024-12-16 07:40 | disposition home or self-care (01) ==
PROVIDERS: Emergency Provider Family Medicine; PCP Family Medicine
DX: I48.91 Unspecified atrial fibrillation (principal); I10 Essential (primary) hypertension
CPT/HCPCS: 36415; 80048; 84443; 84484; 85025; 93005; 99282; 99284